=== PATIENT | male | born 1960 | race Caucasian/White ===

== ENCOUNTER 2016-08-27 01:14 | Inpatient (IN) | payer MEDICARE, OTHER ==
--- NOTE | ~2016-08-27 | EKG ---
PATIENT: CHANEL BARRETT UNIT #: [id number] Ventricular Rate: 78 BPM Atrial Rate: 78 BPM P-R Interval: 156 ms QRS Duration: 88 ms Q-T Interval: 330 ms QTC Calculation(Bezet): 376 ms P [place]: 59 degrees Calculated R [place]: 49 degrees Calculated T [place]: 38 degrees Diagnosis Line: Normal sinus rhythm Diagnosis Line: Normal ECG Diagnosis Line: When compared with ECG of 27-AUG-2016 01:40, Diagnosis Line: T wave inversion no longer evident in Inferior Diagnosis Line: leads Diagnosis Line: Nonspecific T wave abnormality no longer evident Diagnosis Line: in Lateral leads Diagnosis Line: Confirmed by RICHARD JACINTO MD ([id number]) on 08/31/2016 Diagnosis Line: 7:21:04 AM INTERPRETING MD: OPHELIA CUENCA
--- NOTE | ~2016-08-27 | CR7 ---
[facility] A Service of [facility] & [facility] RADIOLOGY TEXT RESULTS PATIENT: CHANEL BARRETT LOCATION: [facility] 554-01 : 60 UNIT #: [id number] AGE: [address]: Roderick Prince MD SEX: M ORDER DR: [id number] [facility] [address] [place] [facility]. [place], [place] [address] [id number] I MR#: [id number] Acc #: [id number] NAME: CHANEL BARRETT : 1960 SEX: M STUDY DATE/TIME: 08/31/2016 07:02 UNIT: [facility] ROOM: [facility] STUDY DESCRIPTION: CR Abdomen Single AP View Attending Physician: Roderick Prince M.D. Ordering Physician: Zion Olvera M.D. Primary Care Physician: Elda William Aprn MEDICAL IMAGING REPORT This report is preliminary unless electronic signature is present EXAM Abdomen one-view 08/31/2016 07:47 hours. HISTORY 56-year-old man with complaint of abdominal pain and distension, ureteral stones since 08/27/2016. COMPARISON 08/27/[address] FINDINGS Cone view of the abdomen and cone view of the pelvis are performed. There is patchy bibasilar parenchymal density most consistent with atelectasis at the lung bases. There is a left ureteral double-J stent extending from the left renal pelvis to the bladder. I do not clearly identify a stone in the kidney or along the course of the stent. There is increased gas throughout the small bowel suggesting an adynamic ileus. IMPRESSION 1. There is a new left renal or ureteral double-J stent with the upper loop at the renal pelvis and lower loop in the bladder. No definite intrarenal or ureteral stones are seen. 2. Gaseous distension of multiple loops of small bowel most suggestive of mild adynamic ileus. Dictated by... Kiana Buchanan M.D. THIS IS AN ELECTRONICALLY VERIFIED REPORT Kiana Buchanan M.D. at 08/31/2016 2:27 PM SMM/gz TD: 08/31/2016 14:00 [facility] A Service of [facility] & [facility] RADIOLOGY TEXT RESULTS PATIENT: CHANEL BARRETT LOCATION: [facility] 554-01 : 60 UNIT #: [id number] AGE: [address]: Roderick Prince MD SEX: M ORDER DR: JOB #: [id number] MEDICAL IMAGING REPORT COPY
--- NOTE | ~2016-08-27 | CR72 ---
[facility] A Service of [facility] RADIOLOGY TEXT RESULTS PATIENT: CHANEL BARRETT LOCATION: [place] [address] : 60 UNIT #: [id number] AGE: [address]: Roderick Prince MD SEX: M ORDER DR: [id number] [facility] [address] [facility]. [place], [place] [address] [id number] I MR#: [id number] Acc #: [id number] NAME: CHANEL BARRETT : 1960 SEX: M STUDY DATE/TIME: 08/27/2016 1:39 UNIT: [facility] ROOM: [facility] STUDY DESCRIPTION: CR Chest Single View Portable Attending Physician: Roderick Prince M.D. Ordering Physician: Nakul Leonard M.D. Primary Care Physician: Elda Wililam Aprn MEDICAL IMAGING REPORT This report is preliminary unless electronic signature is present EXAM AP portable chest. DATE 08/27/2016 at 0139 HISTORY Acute mental status changes. Lethargy. Abdominal distension. Symptoms present since 08/27/2016. COMPARISON AP portable chest, 04/06/2012. FINDINGS Patchy and fairly dense interstitial and alveolar disease changes are present within both lungs. There is some bandlike opacity or scarring in the right midlung which appears similar to 04/06/2012. Right lateral pleural thickening or chronic effusion, unchanged from 2011. Signs of old right humeral neck fracture. Heart size is borderline enlarged but stable. No definite pneumothorax. No acute osseous abnormalities are identified. IMPRESSION Interstitial and alveolar changes in both lungs may represent atypical distribution of edema or pneumonia. There is chronic-appearing band-like scarring in the right middle lobe with lateral right pleural thickening or chronic effusion similar to 04/06/2012. Dictated by... Geri Hannah M.D. [facility] A Service [facility] RADIOLOGY TEXT RESULTS PATIENT: CHANEL BARRETT LOCATION: [facility] 5509-12 : 60 UNIT #: [id number] AGE: [address]: Roderick Prince MD SEX: M ORDER DR: THIS IS AN ELECTRONICALLY VERIFIED REPORT Geri Hannah M.D. at 08/28/2016 12:11 AM OLMAN/rachid TD: 08/27/2016 12:11 JOB #: [id number] MEDICAL IMAGING REPORT COPY
--- NOTE | ~2016-08-27 | CT2 ---
[facility] A Service of [facility] RADIOLOGY TEXT RESULTS PATIENT: CHANEL BARRETT LOCATION: [facility] 554-01 : 60 UNIT #: [id number] AGE: [address]: Roderick Prince MD SEX: M ORDER DR: [id number] [facility] [address] [facility]. [place], [place] [address] [id number] I MR#: [id number] Acc #: [id number] NAME: CHANEL BARRETT : 1960 SEX: M STUDY DATE/TIME: 08/27/2016 3:11 UNIT: [facility] ROOM: [facility] STUDY DESCRIPTION: CT Abd and Pelv W Cont Attending Physician: Roderick Prince M.D. Ordering Physician: Nakul Leonard M.D. Primary Care Physician: Elda William Aprn MEDICAL IMAGING REPORT This report is preliminary unless electronic signature is present EXAM CT abdomen and pelvis with contrast DATE 08/27/2016 HISTORY halfway patient with abdominal distension, increasing lethargy, increasing acute mental status changes and fever today. COMPARISON No prior CT abdomen and pelvis at this institution for comparison. PROCEDURE 5 mm axial images from the lung bases through the lesser trochanters after intravenous and enteric contrast administration. Sagittal and coronal reformatted images were obtained. TECHNIQUE This CT exam was performed with one or more of the following radiation dose reduction techniques: automatic control, adjustment of mA and/or kV according to patient size, and iterative reconstruction. FINDINGS ABDOMEN FINDINGS: A 5 mm stone is lodged within the left ureteropelvic junction resulting in mild left hydronephrosis and hydroureter. There is diminished enhancement of the left kidney, as well. There are regions of ill-defined geographic low density within left kidney suggesting changes of multifocal nephritis. Suspected 5 mm stone in the right lower renal pole. Evaluation for kidney stones is limited due to the presence of IV contrast material. Right renal cysts are present. Interstitial and alveolar disease changes are present in the lung bases [facility] A Service of [facility] RADIOLOGY TEXT RESULTS PATIENT: CHANEL BARRETT LOCATION: [facility] 554-01 : 60 UNIT #: [id number] AGE: [address]: Roderick Prince MD SEX: M ORDER DR: thought to represent changes of pneumonitis. Mild cardiomegaly. Liver, gallbladder, spleen, pancreas, adrenals within normal limits. Limited evaluation of bowel due to lack of enteric contrast but no focal bowel inflammatory changes thought to be present. The appendix is normal. PELVIS FINDINGS: Urinary bladder is decompressed with a Kaufman catheter. Prostate and rectum are within normal limits. Chronic-appearing compression deformity at the endplate of L4. IMPRESSION 1. 5 mm obstructing left ureteral pelvic junction stone with mild left hydronephrosis, hydroureter, and perinephric inflammation. 2. Geographic areas of diminished density throughout the left kidney suggests multifocal left nephritis. 3. Right renal cyst and suspected nonobstructing 5 mm stone in the right lower renal pole. 4. The appendix is normal. 5. A pneumonitis changes within the lung bases. Dictated by... Geri Hannah M.D. THIS IS AN ELECTRONICALLY VERIFIED REPORT Geri Hannah M.D. at 08/28/2016 12:10 AM OLMAN/jessi TD: 08/27/2016 12:15 JOB #: [id number] MEDICAL IMAGING REPORT COPY
--- NOTE | ~2016-08-27 | CR63 ---
[facility] A Service of [facility] & [facility] RADIOLOGY TEXT RESULTS PATIENT: CHANEL BARRETT LOCATION: [place] [address] : 60 UNIT #: [id number] AGE: [address]: Roderick Prince MD SEX: M ORDER DR: [id number] [place] [id number] [facility]. [place], [place] [address] [id number] I MR#: [id number] Acc #: [id number] NAME: CHANEL BARRETT : 1960 SEX: M STUDY DATE/TIME: 08/28/2016 7:50 UNIT: [facility] ROOM: [facility] STUDY DESCRIPTION: CR Chest 2 View Attending Physician: Roderick Prince M.D. Ordering Physician: Yeison Ramirez M.D. Primary Care Physician: Elda William Aprn MEDICAL IMAGING REPORT This report is preliminary unless electronic signature is present EXAM PA and lateral chest. HISTORY 56-year-old male with follow-up from pneumonia. COMPARISON STUDIES 08/27/2016 FINDINGS There is worsening infiltrate in the left mid zone. The remainder of the study is stable. The lateral view is nondiagnostic. IMPRESSION Worsening left mid zone infiltrate. Dictated by... Edgar Schneider M.D. THIS IS AN ELECTRONICALLY VERIFIED REPORT Edgar Schneider M.D. at 08/31/2016 8:36 AM LENORE/josé luis TD: 08/28/2016 11:54 JOB #: [id number] MEDICAL IMAGING REPORT COPY
--- NOTE | ~2016-08-27 | CO ---
Unit #: [id number] #: [id number] Patient: CHANEL BARRETT [id number] [place] [id number] [facility] [place], [place] [address] [id number] I MR#: [id number] NAME: CHANEL BARRETT ROOM: 554 Age: 56 Sex: M Admission Date: 08/27/2016 : 1960 Attending Physician: Roderick Prince M.D. Primary Care Physician: Elda William Aprn CONSULTATION REPORT JOB NOTE: CC: DR. GUERRA. HISTORY OF PRESENT ILLNESS Mr. Myers is a 56-year-old resident of [place]. He was brought over because of lethargy. He had also been having some urinary symptoms and some edema, apparently he had been more short of breath. He is nonverbal and there is really not much other history available. He was febrile in the emergency room to 102.1. CT scan of the abdomen and pelvis revealed a left 5 mm ureteropelvic junction stone and evidence of pyelonephritis. He also had bilateral interstitial and alveolar infiltrates, which were new. He does have chronic changes in the right upper lobe which appears stable on previous chest x-rays representing some rounded atelectasis. He was then taken to surgery by Dr. Olvera and undergone cystoscopy with a left 7-C[place] 26 cm double-J stent placement. He has been started on vancomycin, Zosyn, and gentamicin. We were asked to see. His room air oxygen saturation in the emergency room was recorded at 90%. His blood pressure was 146/55, his pulse was 111, his respiratory rate was recorded at 20, he was started on vancomycin, Zosyn, and tobramycin. Postop orders do not continue gentamicin or Zosyn. PAST MEDICAL HISTORY Severe mental retardation, history of hypertension, hypothyroidism, hyperlipidemia, seizure disorder. Apparently, he is able to speak in one word sentences and communicate his needs. He has a chronic right middle lobe, rounded atelectasis. HOME MEDICATIONS According to the chart included Klonopin, Citracal D Caplet, Depakote, Nexium, lactulose, lisinopril, Mevacor, Mobic, omega-3, fish oil, MiraLax, Theragran, vitamin D, levothyroxine, acetaminophen, and Dulcolax. ALLERGIES Include Seroquel and Depakote. PAST SURGICAL HISTORY Currently, had cystoscopy. He has had upper and lower GI studies. SOCIAL HISTORY Lives at [place]. No tobacco or alcohol. FAMILY HISTORY Unknown, the patient is nonverbal. REVIEW OF SYSTEMS Unit #: [id number] #: [id number] Patient: CHANEL BARRETT Unknown, the patient is nonverbal. PHYSICAL EXAMINATION VITAL SIGNS: Blood pressure is 123/62, pulse 105, respiratory rate 22, temperature 101.3. HEENT: Normocephalic and atraumatic. Pupils are round reactive. Sclerae nonicteric. Nasal passages patent. Not really able to evaluate oral cavity. NECK: Thick, supple, trachea midline. No cervical or supraclavicular lymphadenopathy. LUNGS: Fairly clear anteriorly probably some mild crackles laterally and posteriorly. CARDIAC: Regular rate and rhythm. Could not appreciate murmur, rub, or gallop. ABDOMEN: Distended, nontender, bowel sounds present. EXTREMITIES: 1+ edema bilaterally. Diminished peripheral pulses. SKIN: Warm and dry. NEUROLOGIC: Affect, lethargic. DIAGNOSTIC STUDIES IMAGING STUDIES: Chest x-ray, personally reviewed as noted. CT scan reviewed as noted. LABORATORY RESULTS: Chemistries; creatinine 1.3, BUN 27, glucose 124, sodium 137, potassium 3.9, CO2 is elevated at 32. Alkaline phosphatase was 101, ALT 52, AST 43. Coags were normal. White count 14,700, hematocrit 44.7, platelet count normal. Influenza A and B are negative. Urinalysis; 50 to 100 white cells, 4+ bacteria. IMPRESSION 1. Likely pyelonephritis with sepsis. 2. Obstructing ureteral stone, status post stent. 3. Bilateral infiltrates, congestive heart failure versus pneumonia, possibly aspiration. 4. Hypertension. 5. Seizure disorder. 6. Mental retardation. PLAN Broad-spectrum antibiotics to cover both pneumonia and urinary tract infection to cover MRSA and gram negatives. We will check BNP and echocardiogram to rule out ID. Because of elevated CO2 on basal metabolic panel, we will check arterial blood gases to see if he is hypercarbic. We will make further recommendations pending this. Dictated by... Yeison Ramirez M.D. NURY/patricia TD: 08/28/2016 03:19 JOB #: [id number] CC: Zion Olvera M.D. Unit #: [id number] #: [id number] Patient: CHANEL BARRETT CONSULTATION REPORT X Yeison Ramirez MD CONSULTATION REPORT
--- NOTE | ~2016-08-27 | EKG ---
PATIENT: CHANEL BARRETT UNIT #: [id number] Ventricular Rate: 107 BPM Atrial Rate: 107 BPM P-R Interval: 150 ms QRS Duration: 84 ms Q-T Interval: 296 ms QTC Calculation(Bezet): 395 ms P [place]: 59 degrees Calculated R [place]: 61 degrees Calculated T [place]: 39 degrees Diagnosis Line: Sinus tachycardia Diagnosis Line: T wave abnormality, consider inferior ischemia Diagnosis Line: T wave abnormality, consider lateral ischemia Diagnosis Line: Abnormal ECG Diagnosis Line: No previous ECGs available Diagnosis Line: Confirmed by RICHARD JACINTO MD ([id number]) on 08/27/2016 Diagnosis Line: 5:46:55 PM INTERPRETING MD: OPHELIA CUENCA
--- NOTE | ~2016-08-27 | CR63 ---
[facility] A Service of [facility] RADIOLOGY TEXT RESULTS PATIENT: CHANEL BARRETT LOCATION: [facility] 5509-12 : [birth year] UNIT #: [id number] AGE: [address]: Roderick Prince MD SEX: M ORDER DR: [id number] [place] [id number] [facility]. [place], [place] [address] [id number] I MR#: [id number] Acc #: [id number] NAME: CHANEL BARRETT : 1960 SEX: M STUDY DATE/TIME: 08/29/2016 8:29 UNIT: [facility] ROOM: [facility] STUDY DESCRIPTION: CR Chest 2 View Attending Physician: Roderick Prince M.D. Ordering Physician: Yeison Ramirez M.D. Primary Care Physician: Elda William Aprn MEDICAL IMAGING REPORT This report is preliminary unless electronic signature is present EXAM Chest 2 views 08/29/2016 HISTORY 56-year-old male with shortness of air for 2 days. Cough and congestion. COMPARISON Chest 08/28/2016. FINDINGS 1 frontal view and 2 lateral views of the chest were performed. 3 total images. No significant improvement in patchy opacities throughout both lungs. Differential includes pneumonia versus congestive failure. Small bilateral pleural effusions are not excluded. No pneumothorax. Heart size and mediastinum are stable. Central vascular congestion noted. IMPRESSION 1. No interval improvement in patchy diffuse bilateral pulmonary opacities. Differential includes pneumonia versus congestive failure. Central pulmonary vascular congestion is again noted. 2. Small bilateral pleural effusions are not excluded. Dictated by... Hemal Burgos M.D. THIS IS AN ELECTRONICALLY VERIFIED REPORT Hemal Burgos M.D. at 08/31/2016 7:42 AM SHALINI/janett TD: 08/30/2016 07:55 JOB #: [id number] [facility] A Service of [facility] / [facility] RADIOLOGY TEXT RESULTS PATIENT: CHANEL BARRETT LOCATION: [place] [address]-01 : 60 UNIT #: [id number] AGE: [address]: Roderick Prince MD SEX: M ORDER DR: MEDICAL IMAGING REPORT COPY
--- NOTE | ~2016-08-27 | DS ---
Unit #: [id number] #: [id number] Patient: CHANEL BARRETT [id number] [place], [place] [address] [id number] I MR#: [id number] NAME: CHANEL BARRETT ROOM: 55 Age: 56 Sex: M Admission Date: 08/27/2016 : 1960 Discharge Date: Attending Physician: Roderick Prince M.D. Primary Care Physician: Elda William Aprn DISCHARGE SUMMARY DATE OF ANTICIPATED DISCHARGE September 04, 2016 DISCHARGE DIAGNOSES 1. Status post acute respiratory failure. 2. Pneumonia. 3. Mental retardation. 4. Pyelonephritis, status post cystoscopy with stent. 5. Seizure disorder. 6. Hypertension. 7. Dyslipidemia. DISCHARGE MEDICATIONS 1. Combivent inhaler q.4 hours p.r.n. and 3 times daily. 2. Prednisone 40 mg daily. 3. Lactulose 40 mL p.o. t.i.d. 4. Tylenol p.r.n. for fever. 5. Depakote 500 mg p.o. b.i.d. 6. Claritin 10 mg daily. 7. Klonopin 2 mg at noon and 8 p.m. and 1.5 mg p.o. q.a.m. 8. Diastat 10 mg p.r.n. for seizures. 9. MiraLax 17 grams daily. 10. Lipitor 10 mg at bedtime. 11. Lisinopril 10 mg daily. 12. Levemir 5 units subcutaneous at bedtime. 13. Sliding scale insulin. 14. Ferrocite 1 capsule p.o. t.i.d. 15. Morris fish oil 2 tablets t.i.d. 16. Multivitamins daily. 17. Nexium 40 mg daily. 18. Calcium citrate with vitamin D 1 tablet t.i.d. 19. Levothyroxine 50 mcg daily. 20. Vitamin D 400 units daily. 21. Cefepime 1 gram IV b.i.d. 22. Zosyn 3.375 grams IV t.i.d. 23. Topical bacitracin. 24. Vancomycin 250 mL IV daily. DISPOSITION Going back to [facility]. FOLLOWUP 1. With Dr. Patel at the custodial. 2. With Dr. Zeus Ramirez, Pulmonary. Unit #: [id number] #: [id number] Patient: CHANEL BARRETT 3. With Dr. Olvera, Urology. CONSULTS DURING THIS HOSPITAL STAY 1. Dr. Zeus Ramirez. 2. Dr. Zion Olvera. 3. Dr. Russell. LABS, DIAGNOSTICS, AND PROCEDURES DURING THIS HOSPITAL STAY LABORATORY: Urine culture negative. Blood culture negative. IMAGING: Chest x-ray on admission showed atypical pneumonia. CT abdomen and pelvis shows a 5 mm obstructing left ureteropelvic junction stone with mild left hydronephrosis, multifocal left nephritis, and nonobstructing stone on the right. Abdominal x-ray shows gaseous distention of multiple loops and mild adynamic ileus. Last chest x-ray shows essentially stable infiltrates with a right effusion. No pneumothorax. HISTORY OF PRESENT HOSPITAL STAY Please refer to History of Present Illness done by me for initial presentation on this gentleman. ACTIVE PROBLEMS DIAGNOSED Acute hypoxemic respiratory failure, status post evaluation per Pulmonary. He was treated with bronchodilators and steroids. Currently stable from Pulmonary standpoint to be discharged. No signs of any respiratory distress. See discharge medication reconciliation as above. Outpatient followup with Dr. Zeus Ramirez. Pneumonia as above. Continue antibiotics for three more days for a total of 10 days. Pyelonephritis, status post evaluation per Urology, status post cystoscopy with double-J stent. Stable to be discharged with outpatient followup with Urology. Seizure disorder. Continue home medications. Mental retardation. Hypertension. Dyslipidemia. Continue home medications. Disposition as above. Discharge medications as above. Dictated by... Roderick Prince M.D. LUZ MARINA/alejandra TD: 09/03/2016 22:13 JOB #: [id number] Unit #: [id number] #: [id number] Patient: CHANEL BARRETT DISCHARGE SUMMARY Page 1 of 1 X Roderick Prince MD DISCHARGE SUMMARY
--- NOTE | ~2016-08-27 | CO ---
Unit #: [id number] #: [id number] Patient: CHANEL BARRETT [id number] [address] [place], [place] [address] [id number] I MR#: [id number] NAME: CHANEL BARRETT ROOM: 554 Age: 56 Sex: M Admission Date: 08/27/2016 : 1960 Attending Physician: Roderick Prince M.D. Primary Care Physician: Elda William Aprn CONSULTATION REPORT REASON FOR CONSULTATION Bradycardia. HISTORY OF PRESENT ILLNESS This is a 56-year-old male, resident of [facility] with past medical history of profound mental retardation, hypertension, hyperlipidemia, hypothyroidism, seizure disorder. We were asked to see secondary to bradycardia. He initially presented to the emergency room on 08/27/2016 from [place] secondary to altered mental status, lethargy, and abdominal distention. In the emergency room, the patient was noted to be febrile with a temperature of 102.1. He also underwent a CT scan of the abdomen and pelvis, which revealed a left 5 mm ureteropelvic junction stone. The patient was seen by Urology and diagnosed with left ureteral stone with urosepsis. He was taken emergently to the operating room for cystoscopy and left retrograde and left stent placement. The patient did receive a left 7-Senegalese x 26 cm double-J stent. This admission, the patient was also noted to have acute hypoxic respiratory failure most likely secondary to bilateral healthcare-acquired pneumonia. He was started on triple antibiotic therapy, oxygen, and Pulmonary was consulted to follow. We were asked to see the patient today secondary to sinus bradycardia. Telemetry strips have been reviewed which show sinus bradycardia as low as 40 beats per minute. No evidence of high-grade AV block or junctional rhythm. The patient's blood pressure has been stable. He did have a 2D echocardiogram in 03/2012, which showed LVEF of 50% to 55%, mild LVH. The patient is a poor historian, very difficult to obtain any information from, all of his history was gathered from the chart and nursing staff. He did have a chest x-ray, which shows bilateral pulmonary infiltrates. There is slight worsening in the left upper zone, heart size is stable. BNP was noted to be 154. The patient denies any complaints of shortness of breath. He has only a trace of edema in his ankles and no jugular vein distention. At present, he is resting in bed. He appears comfortable. He has a sitter at bedside, but there is no family available. Denies any complaints of chest pain. PAST MEDICAL HISTORY 1. Hypertension. 2. Dyslipidemia. 3. Seizure disorder. Unit #: [id number] #: [id number] Patient: CHANEL BARRETT 4. Profound mental retardation. 5. Hypothyroidism. PAST SURGICAL HISTORY Multiple EGDs and colonoscopies. HOME MEDICATIONS Klonopin 0.5 mg p.o. daily, Lipitor 30 mg p.o. daily, calcium plus D one tab p.o. t.i.d., cefepime 1 g IV b.i.d., clindamycin 300 mg p.o. q.6 hours, Depakote ER 500 mg p.o. b.i.d., Ferrocite plus capsule one cap p.o. t.i.d., lactulose 45 mL p.o. t.i.d., lisinopril 10 mg p.o. daily, Claritin 10 mg p.o. daily, Nexium 40 mg p.o. daily, omega-3 fish oil two tabs p.o. t.i.d., MiraLax 17 g b.i.d., Theragran multivitamin one p.o. daily, vitamin D 400 units p.o. daily, levothyroxine 50 mcg p.o. daily, diazepam 10 mg per rectum p.r.n. seizure. ALLERGIES Seroquel and Depakote. SOCIAL HISTORY This is a [place] resident. No history of tobacco, alcohol, or illicit drug use. FAMILY HISTORY Unknown. PHYSICAL EXAMINATION GENERAL: This is a 56-year-old male, in no acute distress, unable to give history, no family present at bedside, sitter is present. VITAL SIGNS: Temperature 98.0, respiratory rate 18 to 20, pulse 40s to 60s, blood pressure 133/71 to 156/82, oxygen saturation 96% on 2 L nasal cannula. HEENT: Head is atraumatic and normocephalic. Pupils are equal and round. Extraocular movements are intact. Mucous membranes are moist. NECK: Supple. No JVD. No bruits. Trachea is midline. No lymphadenopathy or thyromegaly. CHEST: Clear to auscultation anterior, diminished in the bases. CARDIOVASCULAR: S1, S2. No murmurs, gallops, or rubs. ABDOMEN: Distended slightly, tender in the left lower quadrant, bowel sounds are present. EXTREMITIES: Trace ankle edema. Pulses are palpable. No clubbing or cyanosis. NEUROLOGIC: Awake and alert. Nonverbal, unable to give any history. Moves all extremities. DIAGNOSTIC STUDIES LABORATORY RESULTS: Blood cultures were negative. Urine culture was negative. Glucose 211, BUN 31, creatinine 0.8, sodium 136, potassium 4.8, chloride 100, CO2 of 27, magnesium 2.2. BNP 154. The patient did have an indeterminate troponins this admission 0.21 to repeat of 0.14. Hemoglobin 12.5, hematocrit 37.6, WBC 7.7, platelet count 164. IMAGING STUDIES: Initial chest x-ray shows no interval improvement in patchy diffuse bilateral pulmonary opacities. Differential includes pneumonia versus CHF. Central pulmonary vascular congestion is noted. Small bilateral pleural effusions are not excluded. Repeat chest x-ray today, PA and lateral shows slight worsening of Unit #: [id number] #: [id number] Patient: CHANEL BARRETT bilateral pulmonary infiltrates. CT of the abdomen showed a 5 mm stone lodged in the left ureteropelvic junction resulting in mild left hydronephrosis and hydroureter. The patient is status post stent placement. One-view abdomen shows from the shows new left renal or ureteral double-J stent with upper loop at the pelvis and a loop in the bladder. No definite intrarenal ureteral stones are seen. Gaseous distention of multiple loops of small bowel, most suggestive of mild adynamic ileus. CARDIOVASCULAR STUDIES: 2D echocardiogram performed on 08/27/2016 shows LVEF 55% to 60%. Normal wall motion. Normal left ventricular wall thickness. Normal diastolic filling pattern. Summary shows possible endocarditis. No intracardiac or valvular masses were noted on the echocardiogram. If clinical findings suggest endocarditis consider BRIDGET. No valvular abnormalities were noted on the echocardiogram. EKG shows normal sinus rhythm, rate of 62 beats per minute. QTc interval of 391 msec. Today on telemetry, the patient has been bradycardic with heart rate in the 40s, however, completely asymptomatic. ASSESSMENT 1. Sinus bradycardia, questionable etiology. 2. Volume overload. Chest x-ray suggestive of congestive heart failure versus pneumonia. The patient's BNP is within normal limits. 3. Left ureteral stone, status post left 7-Senegalese x 26 cm double-J stent on 08/27/2016 per Urology. 4. Urosepsis. 5. Pyelonephritis. 6. Acute hypoxic respiratory failure. 7. Healthcare-acquired pneumonia. 8. Profound mental retardation, resident of [facility]. 9. History of hypertension. 10. Dyslipidemia. 11. Seizure disorder. 12. Hypothyroidism. PLAN 1. The patient's telemetry strips have been reviewed. He does have issues with sinus bradycardia, rate in the 40s to 50s. There is no evidence of junctional rhythm or high-grade AV block. The patient is asymptomatic. His blood pressure is well controlled. At present, his chest x-ray has been reviewed, he does appear to be volume overloaded. However, he has a BNP of 154. The patient has a trace of ankle edema, no JVD, and lungs sounds were diminished. The patient is being treated for pneumonia, however, Dr. Russell has reviewed the chest x-ray and believes that it is more volume related. The patient is going to have a repeat PA and lateral chest x-ray today. Pulmonary is following. 2. Repeat echocardiogram performed on 08/27/2016 shows LVEF of 55% to 60% with normal diastolic filling, trace physiologic tricuspid regurgitation. 3. We will check sinus node response to IV atropine. 4. He is hemodynamically stable with a slow heart rate and hence will not treat his bradycardia. He is currently not on any medications that would decrease his heart rate. If his blood pressure drops with slow heart rate consider permanent pacemaker placement. He will be given 1 mg IV atropine now. We will check thyroid studies and do a trial of IV Lasix now and see Unit #: [id number] #: [id number] Patient: CHANEL BARRETT how the patient responds. He will also have strict I's and O's q.shift. Dictated by... Ruthann Guerrero A.P.R.N. for Sergio Russell M.D. LMW/modl TD: 09/02/2016 00:18 JOB #: [id number] CONSULTATION REPORT Page 1 of 1 X Ruthann Guerrero APRN X CONSULTATION REPORT
--- NOTE | ~2016-08-27 | EKG ---
PATIENT: CHANEL BARRETT UNIT #: [id number] Ventricular Rate: 62 BPM Atrial Rate: 62 BPM P-R Interval: 154 ms QRS Duration: 86 ms Q-T Interval: 386 ms QTC Calculation(Bezet): 391 ms P [place]: 61 degrees Calculated R [place]: 56 degrees Calculated T [place]: 36 degrees Diagnosis Line: Normal sinus rhythm Diagnosis Line: Normal ECG Diagnosis Line: Diagnosis Line: Confirmed by JENNA GUERRA MD ([id number]) on Diagnosis Line: 09/01/2016 2:22:40 PM INTERPRETING MD: MARI CUENCA
--- NOTE | ~2016-08-27 | HP ---
Unit #: [id number] #: [id number] Patient: CHANEL BARRETT [id number] [address] [address] [id number] I MR#: [id number] NAME: CHANEL BARRETT ROOM: 554 Age: 56 Sex: M Admission Date: 08/27/2016 : 1960 Attending Physician: Roderick Prince M.D. Primary Care Physician: Elda William Aprn HISTORY AND PHYSICAL ADMISSION DIAGNOSES 1. Acute hypoxic respiratory failure. 2. Healthcare-acquired pneumonia. 3. Pyelonephritis. 4. History of mental retardation. 5. History of hypertension. 6. Dyslipidemia. 7. Seizure disorder. 8. Hypothyroidism. HISTORY OF PRESENT ILLNESS Mr. Barrett is a 56-year-old gentleman with the past medical history of mental retardation. The patient is a resident of [facility], cared by Dr. Patel, who was brought to the emergency room yesterday evening secondary to decreased mentation, some cough, some respiratory distress, and decreased activity in general. The patient is nonverbal. Therefore, my history is limited and for the same reason, I am not able to obtain any review of systems. PAST MEDICAL HISTORY 1. History of hypertension. 2. Dyslipidemia. 3. Seizure disorder. 4. Mental retardation. 5. Hypothyroidism. PAST SURGICAL HISTORY Multiple EGDs and C-scopes. HOME MEDICATIONS 1. Klonopin. 2. Lipitor. 3. Calcium with vitamin D. 4. IV cefepime and clindamycin. 5. Depakote. 6. Ferrous sulfate. 7. Lisinopril. 8. Claritin. 9. Nexium. 10. [place] 3 fish oil. 11. MiraLax. 12. Multivitamins. 13. Vitamin D. Unit #: [id number] #: [id number] Patient: CHANEL BARRETT 14. Levothyroxine. 15. Diastat p.r.n. ALLERGIES Seroquel, aloe, Depakote. SOCIAL HISTORY No current history of tobacco, alcohol, or illicit drugs. Again, patient is a [place] resident. FAMILY HISTORY Unknown. PHYSICAL EXAMINATION GENERAL: He is a 56-year-old gentleman who is alert and awake and appears in no acute distress. VITAL SIGNS: Blood pressure 132/55, heart rate 100, respirations 20, temperature 100.6 with a T-max of 102.1. HEENT: Head is atraumatic. Pupils equal, round, and reactive to light. Extraocular movements intact. Oropharynx clear. NECK: Supple. No masses. No JVD. No bruits. CHEST: Diminished bilaterally with bilateral rhonchi. CARDIOVASCULAR: S1, S2. No murmurs. ABDOMEN: Soft, obese, nontender, nondistended. EXTREMITIES: Lower extremities without any significant cyanosis, clubbing. May be a trace edema. Good peripheral pulses. NEUROLOGIC: Again, very limited secondary to patient being nonverbal with the history of mental retardation but again he appears without any focal deficits, moves all four extremities, and he is alert and awake. DIAGNOSTIC STUDIES LABORATORY: Blood culture and urine culture are both pending. Blood gases show pCO2 of 45 and pO2 of 73.2 with pH of 7.432. Chemistry was significant for blood glucose of 124, BUN 27, chloride 97, CO2 of 32. Albumin 3.4, direct bilirubin 0.3, AST 43, ALT 52, alkaline phosphatase 101. PT/INR, PTT 12.9, 1.2, and 32.1. Hematology shows white count of 14.7. Influenza A and B negative. UA: Two plus leukocytes, nitrite positive. IMAGING: Chest x-ray shows interstitial and alveolar changes in both lungs with atypical distribution of edema versus pneumonia. Right middle lobe band-like scarring which is similar to prior exams. CT abdomen and pelvis without contrast showed 5 mm obstructing left ureteropelvic junction stone with the mild left hydronephrosis, hydroureter, and perinephric inflammation. Left kidney shows multifocal left nephritis. Right renal cyst and suspected nonobstructive 5 mm stone on the right lower renal pole. The appendix is normal. Pneumonitis changes in the lung bases. ASSESSMENT AND PLAN 1. Acute hypoxemic respiratory failure, most likely secondary to bilateral healthcare-acquired pneumonia. The patient was started on triple IV antibiotics with the vancomycin, Zosyn, and tobramycin per pharmacy dose. Will continue O2 nasal cannula for hypoxemia and then continue DuoNeb q.4 hours. Pulmonary, Dr. Holland, to follow. 2. Left-sided pyelonephritis with urinary tract infection, questionable urosepsis. Continue IV antibiotics. Followup on cultures. Status Unit #: [id number] #: [id number] Patient: CHANEL BARRETT post evaluation per urology. Status post cystoscopy with stent placement. Continue hydration. 3. Hypertension: Stable. 4. Dyslipidemia: We will resume home meds but watch liver function tests. 5. Elevated liver function tests: Will get the right upper quadrant ultrasound. Monitor closely. 6. Hypothyroidism: Continue home medications. 7. Gastrointestinal and deep venous thrombosis prophylaxis: Proton pump inhibitor and sequential compression devices. Dictated by Shannan Adams/leidy TD: 08/27/2016 16:11 JOB #: [id number] HISTORY AND PHYSICAL X Roderick Prince MD HISTORY AND PHYSICAL
--- NOTE | ~2016-08-27 | CR63 ---
[facility] A Service of [facility] & [facility] RADIOLOGY TEXT RESULTS PATIENT: CHANEL BARRETT LOCATION: [facility] 55-01 : [birth year] UNIT #: [id number] AGE: [address]: Roderick Prince MD SEX: M ORDER DR: [id number] [facility] [address] [address] [facility]. [place], [place] [address] [id number] I MR#: [id number] Acc #: [id number] NAME: CHANEL BARRETT : 1960 SEX: M STUDY DATE/TIME: 09/02/2016 7:54 UNIT: [facility] ROOM: [facility] STUDY DESCRIPTION: CR Chest 2 View Attending Physician: Roderick Prince M.D. Ordering Physician: Yeison Ramirez M.D. Primary Care Physician: Elda William Aprn MEDICAL IMAGING REPORT This report is preliminary unless electronic signature is present EXAM Chest x-ray, 09/02/2016. HISTORY Short of air, pneumonia, weakness, cough, congestion since 08/27/2016. FINDINGS PA and lateral views of the chest are compared with 09/01/2016. Lateral view remains essentially nondiagnostic, due to positioning. Heart size stable. Bilateral patchy infiltrates are again seen and are not significantly changed. Right pleural effusion is stable. No pneumothorax. IMPRESSION Essentially stable bilateral infiltrates with a right effusion. No pneumothorax. The lateral views remain essentially nondiagnostic. Dictated by... Rambo Gonzalez Jr., M.D. THIS IS AN ELECTRONICALLY VERIFIED REPORT Rambo Gonzalez Jr., M.D. at 09/02/2016 3:46 PM ANTONETTE/josé luis TD: 09/02/2016 14:17 JOB #: [id number] MEDICAL IMAGING REPORT Page 1 of 1 COPY
--- NOTE | ~2016-08-27 | OR ---
Unit #: [id number] #: [id number] Patient: CHANEL BARRETT [id number] [address] [place], [place] [address] [id number] Francisco MR#: [id number] NAME: CHANEL BARRETT ROOM: 73359 Date of Procedure: 08/27/2016 Admission Date: 08/27/2016 Surgeon: Zion Olvera M.D. : 1960 Attending Physician: Roderick Prince M.D. Primary Care Physician: Elda William Aprn PROCEDURE OPERATIVE NOTE PREOPERATIVE DIAGNOSES 1. Left ureteral stone. 2. Urosepsis. POSTOPERATIVE DIAGNOSES 1. Left ureteral stone. 2. Urosepsis. PROCEDURES PERFORMED 1. Cystoscopy. 2. Left 7 Egyptian x 26 cm double J stent. ANESTHESIA General. INDICATION FOR PROCEDURE Mr. Barrett is a 56-year-old gentleman who presented with a fever and a left 5-mm proximal ureteral stone. The risks, benefits and alternatives - including bleeding, infection, damage to adjacent structures, need for further procedures and need for nephrostomy tube - were discussed with the patient. Informed consent was obtained through the patient's power of immigration attorney. This is an emergent case. We elected to proceed. DESCRIPTION OF PROCEDURE The patient was taken to the operating suite and properly identified. After the application of satisfactory general anesthetic, the patient was placed in the dorsal lithotomy position. All pressure points were padded to the satisfaction of the surgical, anesthetic and nursing teams. His genitalia were prepped and draped in the usual sterile fashion. I introduced the rigid 22 Egyptian cystoscope. The entire urethra was normal. The prostate was nonobstructing. The bladder had no tumors, stones or masses. I identified the left ureteral orifice and passed a 0.035 Sensor wire. There was still contrast from his contrasted CT scan in the kidney. This contrast ended at the UPJ. I was able to manipulate a Sensor wire into kidney. I passed a 7 Egyptian x 26 cm double J stent, which coiled in the renal pelvis and the bladder. No string was attached. A urine culture was sent. An 18 Egyptian coude catheter was placed. The patient tolerated the procedure well without complications. He was transported stable and extubated to the PACU. Unit #: [id number] #: [id number] Patient: CHANEL BARRETT Dictated by... Shannan Newberry TD: 08/27/2016 08:04 JOB #: [id number] PROCEDURE OPERATIVE NOTE X Zion Olvera MD PROCEDURE OPERATIVE NOTE
--- NOTE | ~2016-08-27 | CO ---
Unit #: [id number] #: [id number] Patient: CHANEL BARRETT [id number] [address] [place], [place] [address] [id number] I MR#: [id number] NAME: CHANEL BARRETT ROOM: 20347 Age: 56 Sex: M Admission Date: 08/27/2016 : 1960 Attending Physician: Roderick Prince M.D. Primary Care Physician: Elda William Aprn Consultation Date: 08/27/2016 CONSULTATION REPORT REASON FOR CONSULTATION 1. Left ureteral stone. 2. Urosepsis. HISTORY OF PRESENT ILLNESS The patient is a 56-year-old male who is a [place] resident and presents with nausea, vomiting and malaise. He was found to be febrile in the emergency room with a temperature to 102.1. CT of the abdomen and pelvis revealed a left 5-mm ureteropelvic junction stone. The patient states that he is not having pain but that he has felt sick for several days. He denies prior history of kidney stones. PAST MEDICAL HISTORY 1. Mental retardation. 2. Seizure disorder. 3. Hypertension. 4. Hyperlipidemia. 5. Hypothyroidism. 6. Chronic constipation. 7. Anxiety. NOTE: Our ability to obtain a past medical history is somewhat limited due to the patient's mental retardation, and this is obtained mainly from the medical records. MEDICATIONS Documented in the chart. ALLERGIES Documented in the chart. SOCIAL HISTORY Negative for alcohol, tobacco or drug use. He is a resident of [facility]. His sister is power of senior attorney. REVIEW OF SYSTEMS Positive for nausea. Positive for vomiting. Positive for fever. FAMILY HISTORY Noncontributory. PHYSICAL EXAMINATION VITALS: T max was 102.1, T current 101.3. GENERAL: The patient is able to verbally respond in a limited fashion. Unit #: [id number] #: [id number] Patient: CHANEL BARRETT HEENT: Normocephalic, atraumatic. NECK: Supple. No lymphadenopathy. LUNGS: The patient is breathing comfortably. ABDOMEN: Soft, nontender, nondistended. EXTREMITIES: No clubbing, cyanosis or edema. EXAM: Kaufman is in place draining clear urine. DIAGNOSTIC STUDIES LABS: Creatinine is 1.3. White blood cell count 14.7. Coagulation studies are within normal limits. IMAGING: CT scan of the abdomen and pelvis was independently reviewed. There is a left 5-mm ureteropelvic junction stone and some hypointense areas in his left kidney, possibly consistent with pyelonephritis or early abscess formation. ASSESSMENT AND PLAN Left ureteral stone with urosepsis. He will be taken emergently to the operating room for cystoscopy and left retrograde and left stent placement. The risks, benefits and alternatives - including bleeding, infection, damage to adjacent structures and need for further surgery - have been noted. This is an emergent case. Consent had been obtained from the patient's power of senior attorney. Dictated by... Zion Olvera M.D. FRANK/rosemarie TD: 08/27/2016 07:52 JOB #: [id number] CONSULTATION REPORT X Zion Olvera MD X CONSULTATION REPORT
--- NOTE | ~2016-08-27 | CR63 ---
[facility] A Service of [facility] & [facility] RADIOLOGY TEXT RESULTS PATIENT: CHANEL BARRETT LOCATION: [place] [address] : [birth year] UNIT #: [id number] AGE: [address]: Roderick Prince MD SEX: M ORDER DR: [id number] [place] [id number] [facility]. [place], [place] [address] [id number] I MR#: [id number] Acc #: [id number] NAME: CHANEL BARRETT : 1960 SEX: M STUDY DATE/TIME: 09/01/2016 7:22 UNIT: [facility] ROOM: [facility] STUDY DESCRIPTION: CR Chest 2 View Attending Physician: Roderick Prince M.D. Ordering Physician: Yeison Ramirez M.D. Primary Care Physician: Elda William Aprn MEDICAL IMAGING REPORT This report is preliminary unless electronic signature is present EXAM PA and lateral chest. INDICATIONS 56-year male with followup pneumonia. COMPARISON Comparison with 08/29/2016. FINDINGS Bilateral pulmonary infiltrates. There is slight worsening in the left upper zone. Lateral view nondiagnostic. Heart size stable. There also appears to be slight worsening in the right perihilar region. IMPRESSION Slight worsening of bilateral pulmonary infiltrates. Dictated by... Edgar Schneider M.D. THIS IS AN ELECTRONICALLY VERIFIED REPORT Edgar Schneider M.D. at 09/02/2016 11:30 AM ARS/gz TD: 09/01/2016 13:25 JOB #: [id number] MEDICAL IMAGING REPORT Page 1 of 1 COPY
[~2016-08-27 01:14] MED LIST: ACETAMINOPHEN325 MG PO; BISACODYL10 MG/SUPP PR; CALCIUM CITRATE1 T15 PO; CARDURA PO; CITRACAL + D CA1 TA1 PO; CLARITIN10 MG PO; COLACE PO; DEPAKOTE SPRIN125 M1 PO; DOXYCYCLINE PO; DULCOLAX10 MG/SUPP RC; KLONOPIN PO; KLONOPIN0.5 MG PO; KLONOPIN1 MG PO; KLONOPIN2 MG PO; LACTULOSE10 G/15 M1 PO; LAMICTAL25 MG PO; LEVOTHROID50 MCG PO; LEVOTHYROXINE50 MCG PO; LISINOPRIL10 MG PO; LOPID600 MG PO; MEVACOR PO; MIACALCIN4 ML; MIRALAX17 GM PO; MIRALAX255 GM PO; MOBIC PO; NEXIUM PO; OMEGA 3 FISH OI1 CAP PO; OYSTER CALCIUM500 MG PO; PAXIL PO; PHENOBARB PO; PROBIOTIC1 EACH PO; SINGULAIR PO; SULAR PO; SULAR17 MG PO; SYNTHROID PO; TEGRETOL PO; THERA-TABS M C1 EACH PO; THERAGRAM; THERAGRAN1 TAB PO; VITAMIN D1000 UNIT PO
[2016-08-27 01:36] LABS: BASOPHIL% 0.2 % (0-2.5); DIFF IND NO; HEMATOCRIT 44.7 % (38.0-50.0); HEMOGLOBIN 14.8 gm/dL (13.0-16.0); MEAN CELL VOLUME 93.4 FL (83-96); MEAN CORPUSCULAR HEMOGLOBIN 30.9 PG (28-34); MEAN CORPUSCULAR HGB CONC 33.1 g/dL (30-36); MEAN PLATELET VOLUME 6.8 FL (6.5-11.5); MONOCYTE# 0.8 X10e3 (0-1.0); MONOCYTE% 5.4 % (3.0-12.0); NEUTROPHIL# 12.9 X10e3 (1.5-7.1); NEUTROPHIL% 87.4 % (40-75); PLATELET COUNT 140 X10e3 (140-420); RED BLOOD COUNT 4.79 X10e (3.90-5.60); RED CELL DISTRIBUTION WIDTH 14.6 % (11.0-15.5); WHITE BLOOD COUNT 14.7 X10e3 (4.0-10.5)
[2016-08-27] MEDS ORDERED: KLONOPIN0.5 M1 PO (01:42)
[2016-08-27] MEDS ORDERED: KLONOPIN1 MG PO (01:42)
[2016-08-27] MEDS ORDERED: KLONOPIN2 MG PO (01:42)
[2016-08-27] MEDS ORDERED: LIPITOR PO (01:52)
[2016-08-27] MEDS ORDERED: CALCIUM CITRATE1 T12 PO (01:53)
[2016-08-27] MEDS ORDERED: CEFEPIME-D1 GM/50 ML IV (01:53)
[2016-08-27] MEDS ORDERED: CLINDAMYCIN HC300 MG PO (01:54)
[2016-08-27] MEDS ORDERED: DEPAKOTE ER PO (01:55)
[2016-08-27] MEDS ORDERED: FERROCITE PLUS1 CA1 PO (01:55)
[2016-08-27] MEDS ORDERED: CLARITIN10 M2 PO (01:56)
[2016-08-27] MEDS ORDERED: LISINOPRIL10 MG PO (01:56)
[2016-08-27] MEDS ORDERED: NEXIUM PO (01:56)
[2016-08-27] MEDS ORDERED: LACTULOSE10 G/15 M1 PO (01:56)
[2016-08-27] MEDS ORDERED: OMEGA 3 FISH OI1 CAP PO (01:57)
[2016-08-27] MEDS ORDERED: MIRALAX17 GM DOB (01:57)
[2016-08-27 01:58] LABS: INR 1.2; PARTIAL THROMBOPLASTIN TIME 32.1 SECONDS (23.5-31.3); PROTHROMBIN TIME (PATIENT) 12.9 SECONDS (9.6-11.5)
[2016-08-27] MEDS ORDERED: MIRALAX17 GM PO (01:58)
[2016-08-27] MEDS ORDERED: LEVOTHYROXINE50 MCG PO (02:01)
[2016-08-27] MEDS ORDERED: THERAGRAN1 TAB PO (02:01)
[2016-08-27] MEDS ORDERED: VITAMIN D400 UNI2 PO (02:01)
[2016-08-27] MEDS ORDERED: DIASTAT10 MG PR (02:02)
[2016-08-27 02:05] LABS: ALBUMIN SERUM 3.4 g/dL (3.5-5.0); ALKALINE PHOSPHATASE 101 U/L (32-92); ALT (SGPT) 52 U/L (10-40); AST (SGOT) 43 U/L (10-42); BILIRUBIN, DIRECT 0.3 mg/dL (0.0-0.2); BILIRUBIN,INDIRECT 0.9 mg/dL (0.0-0.9); BILIRUBIN,TOTAL 1.2 mg/dL (0.2-2.0); BLOOD UREA NITROGEN 27 mg/dL (9-23); BUN/CREATININE RATIO 20.76; CARBON DIOXIDE 32 mmol/L (22-31); CHLORIDE 97 mmol/L (100-111); CREATININE SERUM 1.3 mg/dL (0.6-1.4); GLOM FILT RATE Estimated ABOVE60 mL/min (>60); GLUCOSE FASTING 124 mg/dL (70-110); POTASSIUM 3.9 mmol/L (3.5-5.1); PROTEIN TOTAL SERUM 7.4 g/dL (6.0-8.3); SODIUM 137 mmol/L (135-145)
[2016-08-27 03:37] LABS: URINE SOURCE CLEAN CATCH
[2016-08-27 03:42] LABS: URINE APPEARANCE CLEAR; URINE BILIRUBIN NEG (NEG); URINE BLOOD TRACE (NEG); URINE COLOR DK YELLOW; URINE GLUCOSE 500 MG/DL (NEG); URINE KETONE TRACE (NEG); URINE LEUKOCYTE ESTERASE 2+ (NEG); URINE NITRATE POS (NEG); URINE PROTEIN 1+ (NEG)
[2016-08-27 03:45] LABS: CULTURE INDICATED? YES; URINE BACTERIA AUWI NEG (NEGATIVE); URINE SQUAMOUS EPITHELIAL CELL NONE SEEN /[HPF]; UWBCS1 AUWI 50-100 (0-5)
[2016-08-27 04:07] LABS: INFLUENZA A NEG (NEG); INFLUENZA B NEG (NEG)
[2016-08-27 11:17] LABS: ARTERIAL BLD GAS O2 SATURATION 93.8 % (90.0-100.0); ARTERIAL BLOOD GAS ALLEN TEST Y; ARTERIAL BLOOD GAS ART SITE LEFT RADIAL; ARTERIAL BLOOD GAS CARBOXY HB 0.9 %sat (0.0-9.0); ARTERIAL BLOOD GAS DELIVERY NASAL CANNULA; ARTERIAL BLOOD GAS HCO3 30.2 mmol/L; ARTERIAL BLOOD GAS MET HB 0.7 %sat (0.0-2.0); ARTERIAL BLOOD GAS PCO2 45.3 mmHg (35.0-45.0); ARTERIAL BLOOD GAS PO2 73.2 mmHg (80.0-100); ARTERIAL BLOOD GAS pH 7.432 (7.350-7.450); ARTERIAL DRAW? YES
[2016-08-27 12:53] LABS: %MB 0.9 % (0.0-4.0)
[2016-08-27 18:29] LABS: %MB 3.1 % (0.0-4.0); MB 3.1 ng/ml
[2016-08-28 00:41] LABS: %MB 1.4 % (0.0-4.0); MB 1.1 ng/ml
[2016-08-28 06:08] LABS: HEMATOCRIT 38.5 % (38.0-50.0); MEAN CELL VOLUME 93.7 FL (83-96); MEAN CORPUSCULAR HEMOGLOBIN 30.7 PG (28-34); MEAN CORPUSCULAR HGB CONC 32.8 g/dL (30-36); MEAN PLATELET VOLUME 7.3 FL (6.5-11.5); RED BLOOD COUNT 4.1 X10e (3.90-5.60); WHITE BLOOD COUNT 9.6 X10e3 (4.0-10.5)
[2016-08-28 06:13] LABS: HEMOGLOBIN 12.6 gm/dL (13.0-16.0)
[2016-08-28 07:47] LABS: ALBUMIN SERUM 2.6 g/dL (3.5-5.0); ALKALINE PHOSPHATASE 85 U/L (32-92); ALT (SGPT) 51 U/L (10-40); AST (SGOT) 46 U/L (10-42); BLOOD UREA NITROGEN 21 mg/dL (9-23); BUN/CREATININE RATIO 19.09; CALCIUM SERUM 8.6 mg/dL (8.4-10.2); CARBON DIOXIDE 26 mmol/L (22-31); CHLORIDE 105 mmol/L (100-111); CREATININE SERUM 1.1 mg/dL (0.6-1.4); GLOM FILT RATE Estimated ABOVE60 mL/min (>60); GLUCOSE FASTING 108 mg/dL (70-110); PROTEIN TOTAL SERUM 6.1 g/dL (6.0-8.3); SODIUM 138 mmol/L (135-145)
[2016-08-28 11:11] LABS: %MB 2.9 % (0.0-4.0); MB 3.1 ng/ml
[2016-08-28 14:56] LABS: ARTERIAL BLD GAS O2 SATURATION 92.2 % (90.0-100.0); ARTERIAL BLOOD GAS HCO3 28.5 mmol/L; ARTERIAL BLOOD GAS MET HB 0.6 %sat (0.0-2.0); ARTERIAL BLOOD GAS PCO2 43.4 mmHg (35.0-45.0); ARTERIAL BLOOD GAS pH 7.425 (7.350-7.450)
[2016-08-28 14:57] LABS: ARTERIAL BLOOD GAS ART SITE LEFT RADIAL; ARTERIAL BLOOD GAS DELIVERY NASAL CANNULA; ARTERIAL BLOOD GAS PO2 64.1 mmHg (80.0-100); ARTERIAL DRAW? YES
[2016-08-29 06:17] LABS: HEMATOCRIT 37.8 % (38.0-50.0); HEMOGLOBIN 12.4 gm/dL (13.0-16.0); MEAN CELL VOLUME 94.2 FL (83-96); MEAN CORPUSCULAR HEMOGLOBIN 30.9 PG (28-34); MEAN CORPUSCULAR HGB CONC 32.8 g/dL (30-36); MEAN PLATELET VOLUME 7.5 FL (6.5-11.5); RED BLOOD COUNT 4.01 X10e (3.90-5.60); RED CELL DISTRIBUTION WIDTH 14.7 % (11.0-15.5); WHITE BLOOD COUNT 6.6 X10e3 (4.0-10.5)
[2016-08-29 07:05] LABS: BLOOD UREA NITROGEN 21 mg/dL (9-23); CALCIUM SERUM 8.7 mg/dL (8.4-10.2); CARBON DIOXIDE 28 mmol/L (22-31); CHLORIDE 101 mmol/L (100-111); GLOM FILT RATE Estimated ABOVE60 mL/min (>60); GLUCOSE FASTING 183 mg/dL (70-110); POTASSIUM 4.5 mmol/L (3.5-5.1); SODIUM 140 mmol/L (135-145)
[2016-08-29 13:07] LABS: LEGIONELLA AG URINE NEG (NEG)
[2016-08-30 06:09] LABS: HEMATOCRIT 37.4 % (38.0-50.0); HEMOGLOBIN 12.1 gm/dL (13.0-16.0); MEAN CELL VOLUME 94.3 FL (83-96); MEAN CORPUSCULAR HEMOGLOBIN 30.5 PG (28-34); MEAN CORPUSCULAR HGB CONC 32.3 g/dL (30-36); MEAN PLATELET VOLUME 8.4 FL (6.5-11.5); RED BLOOD COUNT 3.97 X10e (3.90-5.60); RED CELL DISTRIBUTION WIDTH 14.4 % (11.0-15.5); WHITE BLOOD COUNT 9.1 X10e3 (4.0-10.5)
[2016-08-30 06:58] LABS: BLOOD UREA NITROGEN 28 mg/dL (9-23); CALCIUM SERUM 8.6 mg/dL (8.4-10.2); CARBON DIOXIDE 27 mmol/L (22-31); CHLORIDE 101 mmol/L (100-111); GLOM FILT RATE Estimated ABOVE60 mL/min (>60); GLUCOSE FASTING 306 mg/dL (70-110); POTASSIUM 4.2 mmol/L (3.5-5.1); SODIUM 135 mmol/L (135-145)
[2016-08-31 06:45] LABS: BASOPHIL% 0.1 % (0-2.5); HEMATOCRIT 37.6 % (38.0-50.0); HEMOGLOBIN 12.5 gm/dL (13.0-16.0); LYMPHOCYTE# 1.1 X10e3 (1.0-3.5); LYMPHOCYTE% 14.6 % (17.0-45.0); MEAN CELL VOLUME 94.1 FL (83-96); MEAN CORPUSCULAR HEMOGLOBIN 31.2 PG (28-34); MEAN CORPUSCULAR HGB CONC 33.2 g/dL (30-36); MEAN PLATELET VOLUME 8.4 FL (6.5-11.5); MONOCYTE# 0.4 X10e3 (0-1.0); MONOCYTE% 5.6 % (3.0-12.0); NEUTROPHIL# 6.1 X10e3 (1.5-7.1); NEUTROPHIL% 79.7 % (40-75); PLATELET COUNT 164 X10e3 (140-420); RED BLOOD COUNT 3.99 X10e (3.90-5.60); RED CELL DISTRIBUTION WIDTH 14.7 % (11.0-15.5); WHITE BLOOD COUNT 7.7 X10e3 (4.0-10.5)
[2016-08-31 06:46] LABS: DIFF IND YES
[2016-08-31 07:08] LABS: ANISOCYTOSIS SL; PLATELET ESTIMATE NORMAL (NORMAL)
[2016-08-31 07:17] LABS: BLOOD UREA NITROGEN 31 mg/dL (9-23); BUN/CREATININE RATIO 38.75; CALCIUM SERUM 8.5 mg/dL (8.4-10.2); CARBON DIOXIDE 27 mmol/L (22-31); CHLORIDE 100 mmol/L (100-111); CREATININE SERUM 0.8 mg/dL (0.6-1.4); GLOM FILT RATE Estimated ABOVE60 mL/min (>60); GLUCOSE FASTING 211 mg/dL (70-110); MAGNESIUM 2.2 mg/dL (1.6-3.0); PHOSPHOROUS 2.7 mg/dL (2.5-4.6); POTASSIUM 4.8 mmol/L (3.5-5.1); SODIUM 136 mmol/L (135-145)
[2016-09-01 19:10] LABS: THYROID STIMULATING HORMONE 0.81 uIU/ml (0.34-5.60)
[2016-09-02 08:55] LABS: BLOOD UREA NITROGEN 27 mg/dL (9-23); BUN/CREATININE RATIO 38.57; CALCIUM SERUM 8.3 mg/dL (8.4-10.2); CARBON DIOXIDE 32 mmol/L (22-31); CHLORIDE 93 mmol/L (100-111); CREATININE SERUM 0.7 mg/dL (0.6-1.4); GLOM FILT RATE Estimated ABOVE60 mL/min (>60); GLUCOSE FASTING 214 mg/dL (70-110); POTASSIUM 4.3 mmol/L (3.5-5.1); SODIUM 134 mmol/L (135-145)
[2016-09-03 06:57] LABS: HEMATOCRIT 42.6 % (38.0-50.0); HEMOGLOBIN 13.9 gm/dL (13.0-16.0); MEAN CELL VOLUME 93.1 FL (83-96); MEAN CORPUSCULAR HEMOGLOBIN 30.4 PG (28-34); MEAN CORPUSCULAR HGB CONC 32.7 g/dL (30-36); MEAN PLATELET VOLUME 7.4 FL (6.5-11.5); RED BLOOD COUNT 4.58 X10e (3.90-5.60); RED CELL DISTRIBUTION WIDTH 14.1 % (11.0-15.5); WHITE BLOOD COUNT 13.8 X10e3 (4.0-10.5)
[2016-09-03 07:30] LABS: BLOOD UREA NITROGEN 27 mg/dL (9-23); BUN/CREATININE RATIO 38.57; CALCIUM SERUM 8.7 mg/dL (8.4-10.2); CARBON DIOXIDE 35 mmol/L (22-31); CREATININE SERUM 0.7 mg/dL (0.6-1.4); GLOM FILT RATE Estimated ABOVE60 mL/min (>60); GLUCOSE FASTING 113 mg/dL (70-110); SODIUM 138 mmol/L (135-145)
[2016-09-03 08:00] LABS: CHLORIDE 96 mmol/L (100-111)
== END 2016-09-04 10:30 | DRG 871 ==
LOC: CED 01:14 → CEDOF 04:08 → C5B 09:52
PROVIDERS: Emergency Medicine; Hospitalist; Internal Medicine; Internal Medicine Cardiovascular Disease; Nurse Practitioner; Urology
PROC: B24BZZZ Ultrasonography of Heart with Aorta (ICD-10-PCS; 2016-08-27)
PROC: 0T778DZ Dilation of Left Ureter with Intraluminal Device, Via Natural or Artificial Opening Endoscopic (ICD-10-PCS; principal; 2016-08-27 06:00)
PROC: 05HD33Z Insertion of Infusion Device into Right Cephalic Vein, Percutaneous Approach (ICD-10-PCS; 2016-08-29)
PROC: B54MZZA Ultrasonography of Right Upper Extremity Veins, Guidance (ICD-10-PCS; 2016-08-29)
DX: A41.9 Sepsis, unspecified organism (principal); J18.9 Pneumonia, unspecified organism; J96.01 Acute respiratory failure with hypoxia; I11.0 Hypertensive heart disease with heart failure; I50.9 Heart failure, unspecified; F73 Profound intellectual disabilities; N12 Tubulo-interstitial nephritis, not specified as acute or chronic; N20.1 Calculus of ureter; R56.9 Unspecified convulsions; Y95 Nosocomial condition; E78.5 Hyperlipidemia, unspecified; E03.9 Hypothyroidism, unspecified; R94.5 Abnormal results of liver function studies; R00.1 Bradycardia, unspecified; Z88.8 Allergy status to other drugs, medicaments and biological substances
CPT/HCPCS: 36415; 36600; 51702; 71010; 71020; 74000; 74177; 80048; 80053; 80076; 80202; 81003; 82140; 82308; 82550; 82553; 82803; 82947; 83036; 83605; 83735; 83880; 84100; 84439; 84443; 84484; 85025; 85027; 85610; 85730; 87040; 87086; 87449; 87804; 87899; 93005; 93306; 94640; 94760; 96360; 99291; C2617; J0461; J0692; J1650; J1815; J1940; J2250; J2543; J2930; J3010; J3260; J3370; Q9967

== ENCOUNTER → 2016-09-29 | Outpatient (CLI) | payer MEDICARE, OTHER ==
[~2016-09-29] MED LIST changes: +CALCIUM CITRATE1 T12 PO; +CEFEPIME-D1 GM/50 ML IV; +CLARITIN10 M2 PO; +CLINDAMYCIN HC300 MG PO; +DEPAKOTE ER PO; +DIASTAT10 MG PR; +FERROCITE PLUS1 CA1 PO; +KLONOPIN0.5 M1 PO; +LIPITOR PO; +MIRALAX17 GM DOB; +VITAMIN D400 UNI2 PO
== END | disposition home or self-care (01) ==
LOC: CRAD 09:46
DX: R13.10 Dysphagia, unspecified (principal)
CPT/HCPCS: 74230; 92611; G8996-GN; G8997-GN; G8998-GN

== ENCOUNTER → 2016-10-06 | Outpatient (CLI) | payer MEDICARE, OTHER ==
--- NOTE | ~2016-10-06 | US77 ---
[facility] A Service of [facility] & [facility] RADIOLOGY TEXT RESULTS PATIENT: CHANEL CRAWFORD LOCATION: [facility] : 60 UNIT #: [id number] AGE: [address]: ARLEEN COTO SEX: M ORDER DR: [id number] [facility] [address] [place], [place] [address] [id number] O MR#: [id number] Acc #: [id number] NAME: CHANEL CRAWFORD : 1960 SEX: M STUDY DATE/TIME: 10/06/2016 14:04 UNIT: [facility] ROOM: STUDY DESCRIPTION: US Kidney Bilateral Complete Attending Physician: Arleen Coto Referring Physician: Arleen Coto Primary Care Physician: Elda William Aprn MEDICAL IMAGING REPORT This report is preliminary unless electronic signature is present EXAM Bilateral renal sonogram HISTORY 56-year-old male with known renal stone disease. Recent cystoscopy with stent placement. The stent has been recently extracted. FINDINGS Real-time examination demonstrates the kidneys to be of normal size, shape and echogenicity. The right kidney measures 10.8 cm in length, the left kidney 11.9 cm in length. Central echo complex appears normal. No hydronephrosis, no renal stone. Cortical thickness normal. The bladder unremarkable. IMPRESSION Normal bilateral renal sonogram. In particular, no evidence of stone or obstruction. Dictated by... Marcy Schneider M.D. THIS IS AN ELECTRONICALLY VERIFIED REPORT Marcy Schneider M.D. at 10/07/2016 9:37 AM JUNI/dilan TD: 10/06/2016 20:52 JOB #: [id number] MEDICAL IMAGING REPORT Page 1 of 1 COPY
== END | disposition home or self-care (01) ==
LOC: CGUS 13:18
DX: N20.0 Calculus of kidney (principal)
CPT/HCPCS: 76770